=== PATIENT | male | born 1975 | race Two or more races ===

== ENCOUNTER 2019-11-26 10:28 | Emergency (ER) | payer SELFPAY ==
[~2019-11-26] VITALS: Ht 152.4 cm; Wt 75.0 kg
[2019-11-26 10:35] VITALS: BP 138/85
--- NOTE | 2019-11-26 10:45 | PHYS DOC ---
Adult General Chief Complaint Chief Complaint: EYE PROBLEMS [facility] HPI Patient is a 43 year old male who presents with left eye pain and redness is been ongoing for 3 days. Patient states that he saw a doctor at a clinic who gave him eyedrops (lubricating) however that has not improved the pain. He states that the he still feels like symptoms in his. The patient states he was told to go see an eye doctor however he is been unable to make an eye appointment as they are closed due to the coronavirus. Complete ROS were reviewed and found to be within normal limits, except as documented in the HPI (HECTOR HERNANDEZ APRN) Current Medications Current Medications Current Medications Medications (Trade) Dose Ordered Sig/Adithya Start Time Stop Time Status Last Admin Dose Admin Fluorescein Sodium (Ful-Adriana) 1 strip STK-MED ONCE 11/26/19 10:53 11/26/19 10:54 DC Tetracaine HCl (Tetracaine) 1 drop 1X STAT 11/26/19 10:39 11/26/19 10:54 DC 11/26/19 10:54 1 DROP (MILTON ARIAS DO) Allergies Allergies Allergies Coded Allergies Type Severity Reaction Last Updated Verified No Known Drug Allergies 11/26/19 No (MILTON ARISA DO) Physical Exam Physical Exam Constitutional: Well developed, well nourished, no acute distress, non-toxic appearance. [] HENT: Normocephalic, atraumatic, bilateral external ears normal, oropharynx mo ist, no oral exudates, nose normal. [] Eyes: PERRLA, EOMI, conjunctiva erythema (left) with watery discharge. Lamas lamp examination shows a small corneal abrasion to the left eye. No foreign body noted. Neurologic: Alert and oriented X 3, normal motor function, normal sensory function, no focal deficits noted. [] Psychologic: Affect normal, judgement normal, mood normal. [] (HECTOR HERNANDEZ APRN) Current Patient Data Vital Signs Vital Signs Date Time Temp Pulse Resp B/P (MAP) Pulse Ox O2 Delivery O2 Flow Rate FiO2 11/26/19 10:35 98.3 92 16 138/85 (102) 95 Room Air 98.3 (MILTON ARIAS DO) EKG EKG [] (HECTOR HERNANDEZ APRN) Radiology/Procedures Radiology/Procedures [] (HECTOR HERNANDEZ APRN) Course & Med Decision Making Course & Med Decision Making Pertinent Labs and Imaging studies reviewed. (See chart for details) Will perform a Lamas lamp exam. Patient has a corneal abrasion to the left eye. (HECTOR HERNANDEZ APRN) Dragon Disclaimer Dragon Disclaimer This electronic medical record was generated, in whole or in part, using a voice recognition dictation system. (HECTOR HERNANDEZ APRN) Attending Signature I have participated in the care of this patient and I have reviewed and agree with all pertinent clinical information above including history, exam, and recommendations. (MILTON ARIAS DO) Departure Departure Impression: Primary Impression: Corneal abrasion, left Disposition: HOME, SELF-CARE Condition: STABLE Referrals: NO PCP (PCP) Patient Instructions: Eye - Corneal Abrasion Additional Instructions: Thank you for visiting [facility]. We appreciate you trusting us with your care. If any additional problems come up don't hesitate to return to visit us. Please follow up with your primary care provider so they can plan additional care if needed and know about the problem that you had. If symptoms worsen come back to the Emergency Department. Any concerning symptoms that start such as chest pain, shortness of air, weakness or numbness on one side of the body, running high fevers or any other concerning symptoms return to the ER. Please fill your medications at any pharmacy and follow the prescription instructions. If possible please follow-up with an eye doctor. Scripts Erythromycin Base (Erythromycin) 1 Gm Oint...g. 1 GM LEFTEYE QID for 5 Days, #[address] 0.5 % ointment (1/2 inch ribbon) 4 times daily. Prov: HECTOR HERNANDEZ APRN 11/26/19 Diazepam (VALIUM) 5 Mg Tablet 5 MG PO HS for 2 Days, #2 TAB Please use for next 2 days to help eye heal from corneal abrasion. Prov: HECTOR HERNANDEZ APRN 11/26/19 Problem Qualifiers Primary Impression: Corneal abrasion, left Encounter type: initial encounter Qualified Codes: S05.02XA - Injury of conjunctiva and corneal abrasion without foreign body, left eye, initial encounter HECTOR HERNANDEZ APRN Nov 26, 2019 10:45 MILTON ARIAS DO Nov 26, 2019 14:36
[2019-11-26] MEDS ORDERED: FLUORESCEIN OPHTH TEST STRIP. ONE (10:53)
[2019-11-26] MEDS: TETRACAINE 0.5% OPHTH SOLUTION 4ML BOTTLE. OS STA (10:54)
[2019-11-26] MEDS: FLUORESCEIN OPHTH TEST STRIP. OS ONE (10:55)
[2019-11-26] MEDS ORDERED: ERYT1OIN6 LEFTEYE (11:08)
[2019-11-26] MEDS ORDERED: DIAZ5TAB PO (11:08)
== END 2019-11-26 11:15 | disposition home or self-care (01) ==
LOC: ER 10:28
DX: S05.02XA Injury of conjunctiva and corneal abrasion without foreign body, left eye, initial encounter (principal); X58.XXXA Exposure to other specified factors, initial encounter; Y93.89 Activity, other specified; Y92.89 Other specified places as the place of occurrence of the external cause; Y99.8 Other external cause status
CPT/HCPCS: 99283